=== PATIENT | female | born 1970 | race Hispanic/Latino ===

== ENCOUNTER 2021-03-29 01:29 | Emergency (ER) | payer SELFPAY ==
[~2021-03-29] VITALS: Ht 165.1 cm; Wt 100.2 kg
[2021-03-29 02:49] VITALS: BP 152/88
== END 2021-03-29 03:39 | disposition home or self-care (01) ==
LOC: EDH 01:29
DX: R10.13 Epigastric pain (principal); Z53.21 Procedure and treatment not carried out due to patient leaving prior to being seen by health care provider